=== PATIENT | male | born 1975 | race Caucasian/White ===

== ENCOUNTER → 2018-11-02 | Outpatient (CLI) | payer OTHER ==
[2018-11-02 12:01] LABS: Adenovirus F 40/41 Not Detected (NOT DETECT); Astrovirus Not Detected (NOT DETECT); Campylobacter Sp Not Detected (NOT DETECT); Cryptosporidium Not Detected (NOT DETECT); Cyclospora Cayetanensis Not Detected (NOT DETECT); E. Coli O157 Not Detected (NOT DETECT); Entamoeba Histolytica Not Detected (NOT DETECT); Enteroaggregative E. coli-EAEC Not Detected (NOT DETECT); Enteropathogenic E. coli-EPEC Not Detected (NOT DETECT); Enterotoxigenic E. coli-ETEC Not Detected (NOT DETECT); Giardia Lamblia Not Detected (NOT DETECT); Norovirus GI/GII Not Detected (NOT DETECT); Plesiomonas Shigelloides Not Detected (NOT DETECT); Rotavirus A Not Detected (NOT DETECT); Salmonella Sp Not Detected (NOT DETECT); Sapovirus Not Detected (NOT DETECT); Shiga Toxin-prod E. coli-STEC Not Detected (NOT DETECT); Shigella/Enteroin E. coli-EIEC Not Detected (NOT DETECT); Vibrio Cholerae Not Detected (NOT DETECT); Vibrio Sp Not Detected (NOT DETECT); Yersinia Enterocolitica Not Detected (NOT DETECT)
== END | disposition home or self-care (01) ==
LOC: LAB SHORT 07:30 → LAB 07:30 → LAB FUT 09-09 14:15
PROVIDERS: Internal Medicine Gastroenterology
DX: K92.1 Melena (principal); R10.84 Generalized abdominal pain
CPT/HCPCS: 87507

== ENCOUNTER → 2019-07-04 | Outpatient (CLI) | payer OTHER ==
[~2019-07-04] MED LIST: ALLER-EASE60 MG PO; IBUP600 PO; Prilosec Otc20 MG PO; ZESTRIL40 MG PO
[2019-07-04 20:18] LABS: Anion Gap 5 mmol/L (6-16); Blood Urea Nitrogen 15 mg/dL (8-24); CO2, Blood 28 mmol/L (21-32); Calcium, Blood 9.1 mg/dL (8.5-10.1); Chloride, Blood 103 mmol/L (98-108); Creatinine, Blood 1.07 mg/dL (0.60-1.20); Glomerular Filtration Rate >60 (60-); Glucose, Blood 94 mg/dL (70-99); Potassium, Blood 3.8 mmol/L (3.5-5.5); Sodium, Blood 136 mmol/L (136-145)
== END ==
LOC: LAB 09:35 → LAB SHORT 09:35
PROVIDERS: Family Medicine
DX: I10 Essential (primary) hypertension (principal)
CPT/HCPCS: 80048

== ENCOUNTER → 2019-10-03 | Outpatient (CLI) | payer OTHER ==
[2019-10-03 19:33] LABS: Anion Gap 7 mmol/L (6-16); Blood Urea Nitrogen 16 mg/dL (8-24); Bun/Creatinine Ratio 15.5 (12.0-20.0); CO2, Blood 26 mmol/L (21-32); Chloride, Blood 102 mmol/L (98-108); Creatinine, Blood 1.03 mg/dL (0.60-1.20); Glomerular Filtration Rate >60 (60-); Glucose, Blood 106 mg/dL (70-99); Potassium, Blood 3.9 mmol/L (3.5-5.5); Sodium, Blood 135 mmol/L (136-145)
== END ==
LOC: LAB SHORT 09:00 → OLS 09:00 → EDSTATUS 10-03 09:40 → LAB FUT 10-03 09:40
PROVIDERS: Family Medicine
DX: I10 Essential (primary) hypertension (principal)
CPT/HCPCS: 80048

== ENCOUNTER 2019-12-05 08:48 | Day surgery (SDC) | payer OTHER ==
[~2019-12-05] VITALS: Ht 182.9 cm; Wt 125.7 kg
[~2019-12-05 08:48] MED LIST changes: +Lisinopril-Hct1 EAC4 PO; +METAMUCIL0.4 GM PO; +Phentermine HCl15 MG PO; +TOPI50 PO
--- NOTE | 2019-12-05 10:02 | NUR ---
History, Chart, Medications and Allergies reviewed before start of procedure. Lungs clear T/O to Auscultation. Patient confirms NPO status and agrees with scheduled surgery. Pre-Op teaching done. Pt verbalizes understanding. Patient reports completing Chlorhexadine shower X2 prior to admission to hospital.
--- NOTE | 2019-12-05 13:00 | NUR ---
PT RECEIVED 50MCGS FENTANYL AND 1 PERCOCET T/O RECOVERY. ABD BINDER PLACED WITHOUT DIFFICULTY. Dressing to procedure site clean, dry, intact with no visible drainage, swelling, erythema or bruising noted. Discharge instructions reviewed with patient. Patient verbalizes understanding. Copy given to patient to take home. Patient States Post-Procedure ride home has been arranged. Discharged via wheelchair to private car for ride home. ALL BELONINGS RETURNED TO PATIENT.
--- NOTE | 2019-12-08 13:01 | NUR ---
12/08/19 1301 Floridalma Paniagua VERIFICATIONS: EDIT CHART.
== END 2019-12-05 11:45 | disposition home or self-care (01) ==
LOC: ORSCMMR 08:48 → ORD 10:15 → ORSCMMR 10:15
PROVIDERS: Surgery
PROC: 0WUF0JZ Supplement Abdominal Wall with Synthetic Substitute, Open Approach (ICD-10-PCS; principal; 2019-12-05 10:15)
DX: K42.9 Umbilical hernia without obstruction or gangrene (principal); I10 Essential (primary) hypertension; K21.9 Gastro-esophageal reflux disease without esophagitis; Z79.899 Other long term (current) drug therapy; E66.01 Morbid (severe) obesity due to excess calories; Z68.37 Body mass index [BMI] 37.0-37.9, adult
CPT/HCPCS: C1781; J0690; J1100; J1885; J2250; J2405; J2704; J3010; J7120

== ENCOUNTER 2020-06-04 17:26 | Emergency (ER) | payer OTHER ==
[~2020-06-04] VITALS: Ht 180.3 cm; Wt 128.8 kg
[2020-06-04 17:57] LABS: BASOPHILS ABSOLUTE AUTO 0.03 K/mm3 (0.00-0.23); BASOPHILS PERCENT AUTO 0 % (0-2); EOSINOPHILS ABSOLUTE AUTO 0.12 K/mm3 (0.00-0.68); EOSINOPHILS PERCENT AUTO 2 % (0-6); Hematocrit 41.2 % (37.0-53.0); Hemoglobin 12.8 g/dL (13.5-17.5); IMMATURE GRAN ABSOLUTE AUTO 0.01 K/mm3 (0.00-0.10); IMMATURE GRAN PERCENT AUTO 0 % (0-1); LYMPHOCYTES ABSOLUTE AUTO 1.84 K/mm3 (0.84-5.20); LYMPHOCYTES PERCENT AUTO 28 % (21-46); MONOCYTES ABSOLUTE AUTO 0.69 K/mm3 (0.16-1.47); MONOCYTES PERCENT AUTO 10 % (4-13); Mean Corpuscular HGB 27.6 pg (26.0-34.0); Mean Corpuscular HGB Conc 31.1 g/dL (31.5-36.5); Mean Corpuscular Volume 89 fL (80-100); Mean Platelet Volume 9.5 fL (9.1-12.4); NEUTROPHILS PERCENT AUTO 60 % (41-73); Platelet Count 276 K/mm3 (150-400); RDW Coefficient Variation 13.4 % (11.7-14.2); RDW Standard Deviation 43.5 fL (35.1-46.3); Red Blood Cell Count 4.64 M/mm3 (4.30-5.90); White Blood Cell Count 6.69 K/mm3 (4.00-11.30)
[2020-06-04 18:19] LABS: Alanine Aminotransfer (ALT/SGP 36 U/L (12-78); Albumin/Globulin Ratio 1.1 (0.8-1.8); Alk Phos 68 U/L (50-136); Anion Gap 9 mmol/L (6-16); Aspartate Aminotrans (AST/SGOT 18 U/L (12-37); Bilirubin, Total 0.6 mg/dL (0.1-1.0); Blood Urea Nitrogen 18 mg/dL (8-24); CO2, Blood 27 mmol/L (21-32); Calcium, Blood 8.6 mg/dL (8.5-10.1); Chloride, Blood 101 mmol/L (98-108); Creatinine, Blood 1.06 mg/dL (0.60-1.20); Globulin, Blood 3.7 g/dL (2.2-4.0); Glomerular Filtration Rate >60 (60-); Glucose, Blood 89 mg/dL (70-99); Potassium, Blood 3.4 mmol/L (3.5-5.5); Sodium, Blood 137 mmol/L (136-145); Total Protein, Blood 7.7 g/dL (6.4-8.2); Troponin I <0.015 ng/mL (0.000-0.040)
== END 2020-06-04 21:20 | disposition home or self-care (01) ==
LOC: ER 17:26
PROVIDERS: Physician Assistant
DX: I87.8 Other specified disorders of veins (principal); Z88.0 Allergy status to penicillin; Z79.899 Other long term (current) drug therapy; Z87.891 Personal history of nicotine dependence
CPT/HCPCS: 36415; 71046; 80053; 83880; 84484; 85025; 93005; 93010; 99284-25

== ENCOUNTER 2020-08-07 14:04 | Emergency (ER) | payer OTHER ==
[~2020-08-07] VITALS: Ht 180.3 cm; Wt 131.5 kg
[2020-08-07 15:36] LABS: BASOPHILS ABSOLUTE AUTO 0.04 K/mm3 (0.00-0.23); BASOPHILS PERCENT AUTO 1 % (0-2); EOSINOPHILS ABSOLUTE AUTO 0.12 K/mm3 (0.00-0.68); EOSINOPHILS PERCENT AUTO 2 % (0-6); Hematocrit 42.1 % (37.0-53.0); Hemoglobin 12.8 g/dL (13.5-17.5); IMMATURE GRAN ABSOLUTE AUTO 0.02 K/mm3 (0.00-0.10); IMMATURE GRAN PERCENT AUTO 0 % (0-1); LYMPHOCYTES PERCENT AUTO 24 % (21-46); MONOCYTES ABSOLUTE AUTO 0.63 K/mm3 (0.16-1.47); MONOCYTES PERCENT AUTO 10 % (4-13); Mean Corpuscular HGB 26.4 pg (26.0-34.0); Mean Corpuscular HGB Conc 30.4 g/dL (31.5-36.5); Mean Corpuscular Volume 87 fL (80-100); Mean Platelet Volume 9.7 fL (9.1-12.4); NEUTROPHILS ABSOLUTE AUTO 4.14 K/mm3 (1.96-9.15); NEUTROPHILS PERCENT AUTO 63 % (41-73); Platelet Count 257 K/mm3 (150-400); RDW Coefficient Variation 13.7 % (11.7-14.2); RDW Standard Deviation 43.9 fL (35.1-46.3); Red Blood Cell Count 4.84 M/mm3 (4.30-5.90); White Blood Cell Count 6.55 K/mm3 (4.00-11.30)
[2020-08-07 15:58] LABS: Alanine Aminotransfer (ALT/SGP 30 U/L (12-78); Albumin, Blood 3.8 g/dL (3.4-5.0); Alk Phos 64 U/L (50-136); Anion Gap 7 mmol/L (6-16); Aspartate Aminotrans (AST/SGOT 21 U/L (12-37); Bilirubin, Total 0.5 mg/dL (0.1-1.0); Blood Urea Nitrogen 17 mg/dL (8-24); Bun/Creatinine Ratio 16.7 (12.0-20.0); CO2, Blood 28 mmol/L (21-32); Calcium, Blood 8.8 mg/dL (8.5-10.1); Chloride, Blood 103 mmol/L (98-108); Creatinine, Blood 1.02 mg/dL (0.60-1.20); Globulin, Blood 3.7 g/dL (2.2-4.0); Glomerular Filtration Rate >60 (60-); Glucose, Blood 94 mg/dL (70-99); Potassium, Blood 3.6 mmol/L (3.5-5.5); Sodium, Blood 138 mmol/L (136-145); Total Protein, Blood 7.5 g/dL (6.4-8.2)
== END 2020-08-07 19:39 | disposition home or self-care (01) ==
LOC: ER 14:04
PROVIDERS: Emergency Medicine
DX: K64.5 Perianal venous thrombosis (principal); I10 Essential (primary) hypertension; K21.9 Gastro-esophageal reflux disease without esophagitis; Z88.0 Allergy status to penicillin; Z87.891 Personal history of nicotine dependence; Z79.899 Other long term (current) drug therapy
CPT/HCPCS: 46040; 74177; 80053; 85025; 99283-25; J7030; Q9967

== ENCOUNTER → 2024-12-13 | Outpatient (CLI) | payer BC | LOC: LAB 14:30 → LAB SHORT 14:30 | DX: L01.00 Impetigo, unspecified (principal) | CPT/HCPCS: 87070; 87205 ==

== ENCOUNTER 2025-03-27 11:38 | Day surgery (SDC) | payer OTHER ==
[~2025-03-27] VITALS: Ht 180.3 cm; Wt 118.7 kg
[2025-03-27] MEDS ORDERED: CENTRUM SILVER1 EAC2 (11:57)
[2025-03-27] MEDS ORDERED: propofoL 50 ML IV ONE (12:07)
[2025-03-27] MEDS ORDERED: Lactated Ringer's 1,000 ML IV ONE ×2 (12:23→12:30)
[2025-03-27] MEDS ORDERED: Lidocaine HCl 4% 5 ML SDA ONE (12:30)
[2025-03-27 13:32] VITALS: BP 134/74
== END 2025-03-27 13:31 | disposition home or self-care (01) ==
LOC: ORSCSDS 11:38
PROVIDERS: Internal Medicine Gastroenterology
PROC: 0DB48ZX Excision of Esophagogastric Junction, Via Natural or Artificial Opening Endoscopic, Diagnostic (ICD-10-PCS; principal; 2025-03-27 14:00)
DX: K21.00 Gastro-esophageal reflux disease with esophagitis, without bleeding (principal); K62.5 Hemorrhage of anus and rectum; Z86.0100 Personal history of colon polyps, unspecified; Z86.0101 Personal history of adenomatous and serrated colon polyps; K44.9 Diaphragmatic hernia without obstruction or gangrene; I10 Essential (primary) hypertension; E66.9 Obesity, unspecified; Z68.36 Body mass index [BMI] 36.0-36.9, adult; Z87.891 Personal history of nicotine dependence; Z79.899 Other long term (current) drug therapy
CPT/HCPCS: 88305; J2003; J2704; J7120

== ENCOUNTER → 2025-09-14 | Outpatient (CLI) | payer OTHER ==
[~2025-09-14] MED LIST changes: +CENTRUM SILVER1 EAC2
[2025-09-14 20:08] LABS: BASOPHILS ABSOLUTE AUTO 0.03 K/mm3 (0.00-0.23); BASOPHILS PERCENT AUTO 0 % (0-2); EOSINOPHILS ABSOLUTE AUTO 0.04 K/mm3 (0.00-0.68); EOSINOPHILS PERCENT AUTO 1 % (0-6); Hematocrit 45.0 % (37.0-53.0); Hemoglobin 15.1 g/dL (13.5-17.5); IMMATURE GRAN ABSOLUTE AUTO 0.03 K/mm3 (0.00-0.10); IMMATURE GRAN PERCENT AUTO 0 % (0-1); LYMPHOCYTES ABSOLUTE AUTO 0.85 K/mm3 (0.84-5.20); LYMPHOCYTES PERCENT AUTO 10 % (21-46); MONOCYTES ABSOLUTE AUTO 0.38 K/mm3 (0.16-1.47); MONOCYTES PERCENT AUTO 4 % (4-13); Mean Corpuscular HGB Conc 33.6 g/dL (31.5-36.5); Mean Corpuscular Volume 92 fL (80-100); NEUTROPHILS ABSOLUTE AUTO 7.29 K/mm3 (1.96-9.15); NEUTROPHILS PERCENT AUTO 85 % (41-73); NRBC ABSOLUTE 0.00 K/mm3 (0.00-0.02); NRBC Auto 0.0 /100 WBC (0.0-0.2); Platelet Count 251 K/mm3 (150-400); RDW Coefficient Variation 12.8 % (11.7-14.2); RDW Standard Deviation 43.2 fL (35.1-46.3)
[2025-09-14 20:34] LABS: Thyroid Stimulating Hormone 0.576 uIU/mL (0.360-4.800)
[2025-09-14 20:35] LABS: Alanine Aminotransfer (ALT/SGP 27 U/L (12-78); Albumin, Blood 4.0 g/dL (3.4-5.0); Albumin/Globulin Ratio 1.2 (0.8-1.8); Anion Gap 9 mmol/L (3-11); Aspartate Aminotrans (AST/SGOT 14 U/L (12-37); Bilirubin, Total 0.6 mg/dL (0.1-1.0); Blood Urea Nitrogen 17 mg/dL (8-24); CHOL/HDL RATIO 3.1; CO2, Blood 25 mmol/L (21-32); Calcium, Blood 8.8 mg/dL (8.5-10.1); Chloride, Blood 104 mmol/L (98-108); Cholesterol 141 mg/dL (50-200); Creatinine, Blood 0.70 mg/dL (0.60-1.20); Globulin, Blood 3.3 g/dL (2.2-4.0); Glucose, Blood 116 mg/dL (70-99); HDL Cholesterol 45 mg/dL (>39); LDL/HDL RATIO 1.2; Low Density Lipoprotein Chol 54 mg/dL (0-110); Potassium, Blood 4.0 mmol/L (3.5-5.5); Sodium, Blood 134 mmol/L (136-145); Total Protein, Blood 7.3 g/dL (6.4-8.2); Triglycerides 210 mg/dL (30-160); Very Low Density Lipoprot Chol 42 mg/dL (6-32)
== END ==
LOC: LAB 14:20 → LAB SHORT 14:20
PROVIDERS: Family Medicine
DX: Z79.899 Other long term (current) drug therapy (principal)
CPT/HCPCS: 80053; 80061; 82306; 83036; 84443; 85025